=== PATIENT | male | born 1950 ===

== ENCOUNTER 2023-03-19 16:05 | Emergency (ER) | payer MEDICARE, OTHER ==
[2023-03-19] MEDS ORDERED: Sodium Chloride 0.9% 10 ML Syringe FLUSH PRN (16:22)
[2023-03-19] MEDS ORDERED: fentaNYL 100 MCG/2 ML SDV IVPUSH ONE (16:22)
[2023-03-19] MEDS ORDERED: Ondansetron 4 MG/2 ML SDV IVPUSH ONE (16:22)
[2023-03-19] MEDS ORDERED: Sodium Chloride 0.9% 1,000 ML IV ONE (16:35)
[2023-03-19] MEDS ORDERED: HYDROmorphone 0.5 MG/0.5 ML Syringe IVPUSH ONE (17:42)
[2023-03-19] MEDS ORDERED: Take Home: Acetaminophen/HYDROcodone 325-5 MG, 5 Tab Pack PO ONE (18:15)
[2023-03-19 18:43] VITALS: BP 196/84; PULSE 64
== END 2023-03-19 18:33 | disposition home or self-care (01) ==
LOC: DL.ED 16:05
DX: S82.842A Displaced bimalleolar fracture of left lower leg, initial encounter for closed fracture (principal); W11.XXXA Fall on and from ladder, initial encounter; Y92.009 Unspecified place in unspecified non-institutional (private) residence as the place of occurrence of the external cause
CPT/HCPCS: 27810; 73600; 96374; 96375; 99283; A9270; J1170; J2405; J3010; J7030; 01462; J3490